=== PATIENT | female | born 1940 | race Caucasian/White ===

== ENCOUNTER 2020-02-24 15:33 | Emergency (ER) | payer OTHER ==
[~2020-02-24] VITALS: Ht 162.6 cm; Wt 77.1 kg
[2020-02-24] MEDS ORDERED: IPRATROPIUM BROM 0.5 MG/2.5ML INH SOL NEB ONE (16:00)
[2020-02-24] MEDS ORDERED: methylPREDNISolone SOD SUCC 125 MG/2 ML VL IV ONE (16:00)
[2020-02-24] MEDS ORDERED: ALBUTEROL SULF 2.5 MG/0.5ML(0.5%) NEB SOLN NEB ONE (16:00)
[2020-02-24 17:23] LABS: Urine Bacteria FEW /hpf (None Seen); Urine Blood TRACE /uL (Negative); Urine Hyaline Cast FEW /lpf (0 - 2); Urine Specific Gravity 1.012 (1.001-1.035); Urine WBC 1 /hpf (0 - 5)
[2020-02-24 17:50] LABS: Eosinophils # (auto) 0.1 10 ^3/uL (0-0.8); Eosinophils % (auto) 1.5 % (0.0-7.0); Hematocrit 38.2 % (36.0-46.0); Lymphocytes # (auto) 1.1 10 ^3/uL (0.4-5.4); Monocytes # (auto) 0.5 10 ^3/uL (0-1.3); Red Blood Cells 4.62 10^6/uL (4.0-5.20)
[2020-02-24 17:53] LABS: Basophils # (auto) 0 10 ^3/uL (0-0.2); Basophils % (auto) 0.5 % (0.0-2.0); Hemoglobin 11.9 g/dL (12.2-16.2); Lymphocytes % (auto) 12.5 % (10.0-50.0); Mean Corpuscular Hemoglobin 25.7 pg (28.0-32.0); Mean Corpuscular Hgb Conc. 31.1 g/dL (32.0-36.0); Mean Corpuscular Volume 82.5 fL (80.0-100.0); Monocytes % (auto) 5.8 % (0.0-12.0); Neutrophils # (auto) 7.3 10 ^3/uL (1.6-8.6); Neutrophils % (auto) 79.7 % (37.0-80.0); Nucleated Red Blood Cells % 0.3 %; Platelet Count (auto) 211 10^3/uL (140-450); Red Cell Distribution Width 19.7 % (11.8-14.3); White Blood Cell 9.1 10^3/uL (4.4-10.8)
[2020-02-24 18:07] LABS: INR 1.29 (0.9-1.15); Partial Thromboplastin Time 32.5 sec (23.0-31.2)
[2020-02-24 18:08] LABS: BUN/Creatinine Ratio 13.6; Calcium 8.3 mg/dL (8.5-10.1)
[2020-02-24 18:13] LABS: Bilirubin, Total 1.3 mg/dL (0.2-1.0); Total Protein 6.9 g/dL (6.4-8.2)
[2020-02-24] MEDS ORDERED: DEXTROSE (50%) 50ML SYRG IV PRN (18:45)
[2020-02-24] MEDS ORDERED: LACTULOSE 20Gm/30ML SOLN PO PRN (18:45)
[2020-02-24] MEDS ORDERED: ACETAMINOPHEN 500 MG TAB PO PRN (18:45)
[2020-02-24] MEDS ORDERED: NITROGLYCERIN 0.4 MG SL TAB SL PRN (18:45)
[2020-02-24] MEDS ORDERED: traMADol HCL 50 MG TAB PO PRN (18:45)
[2020-02-24] MEDS ORDERED: MORPHINE SULF INJ 2 MG/ML SYRINGE 1ML IV PRN ×2 (18:45)
[2020-02-24] MEDS ORDERED: ALBUTEROL SULF 2.5 MG/0.5ML(0.5%) NEB SOLN NEB PRN (18:45)
[2020-02-24] MEDS ORDERED: ONDANSETRON HCL 4 MG/2 ML VIAL IV PRN (18:45)
[2020-02-24 19:28] VITALS: BP 157/70
[2020-02-24] MEDS ORDERED: DOXYCYCLINE 100MG/250ML 250 ML IV SCH (19:30)
[2020-02-24 19:59] LABS: Amphetamine Screen, Urine NEGATIVE (NEGATIVE); Barbiturate Scree,Urine NEGATIVE (NEGATIVE); Benzodiazephine Screen, Urine NEGATIVE (NEGATIVE); Cannabinoid Screen, Urine NEGATIVE (NEGATIVE); Cocaine Screen, Urine NEGATIVE (NEGATIVE); Opiate Scree,Urine NEGATIVE (NEGATIVE); Phencyclidine Screen, Urine NEGATIVE (NEGATIVE)
[2020-02-24 20:27] VITALS: BP 174/112
[2020-02-24] MEDS ORDERED: InsuLIN REG 1unit/0.01ml Soln (100units/ml) SC SCH (22:00)
[2020-02-24] MEDS ORDERED: SODIUM CHLOR 0.9% PF (SALINE LOCK) 10ML VIAL/SYR IV SCH (22:00)
[2020-02-24] MEDS ORDERED: ATORVASTATIN 20 MG TAB PO SCH (22:00)
[2020-02-24] MEDS ORDERED: CARVEDILOL 3.125 MG TAB PO SCH (22:00)
[2020-02-24] MEDS ORDERED: ACCU-CHEK COMFORT CURVE STRIP VI SCH (22:00)
[2020-02-24 22:25] VITALS: BP 138/63
[2020-02-25] MEDS ORDERED: IPRATROPIUM BROM 0.5 MG/2.5ML INH SOL NEB SCH
[2020-02-25] MEDS ORDERED: ALBUTEROL SULF 2.5 MG/0.5ML(0.5%) NEB SOLN NEB SCH
[2020-02-25] MEDS ORDERED: methylPREDNISolone SOD SUCC 40 MG/ML VL IV SCH
[2020-02-25 00:58] VITALS: BP 125/80
[2020-02-25] MEDS ORDERED: POTASSIUM CHL 20 Meq TABLET PO SCH (10:00)
[2020-02-25] MEDS ORDERED: NITROGLYCERIN 0.2MG/HR TOPICAL PATCH TD SCH (10:00)
[2020-02-25] MEDS ORDERED: ASPirin 81 mg TAB PO SCH (10:00)
[2020-02-25] MEDS ORDERED: ENALAPRIL MALEATE 2.5 MG TAB PO SCH (10:00)
[2020-02-25] MEDS ORDERED: FUROSEMIDE 40 MG/4 ML VIAL IV SCH (10:00)
[2020-02-25] MEDS ORDERED: ENOXAPARIN SOD 40 MG/0.4 ML SYRINGE SC SCH (10:00)
== END 2020-02-24 19:12 | disposition short-term general hospital (02) ==
LOC: EDBD 15:33 → ER 15:33
DX: J44.1 Chronic obstructive pulmonary disease with (acute) exacerbation (principal); I11.0 Hypertensive heart disease with heart failure; I50.9 Heart failure, unspecified; I48.91 Unspecified atrial fibrillation; E11.9 Type 2 diabetes mellitus without complications; Z20.828 Contact with and (suspected) exposure to other viral communicable diseases
CPT/HCPCS: 36415; 36600; 71045; 80053; 80307; 81001; 82550; 82805; 82962; 83036; 83735; 83880; 84443; 84484; 85025; 85610; 85730; 87426; 93005; 94640; 94660; 96365; 96366; 96372; 96375; 99291; C9803; J1815; J2930; J3490; J7644; U0003; 96376